=== PATIENT | male | born 1985 | race Caucasian/White ===

== ENCOUNTER → 2024-06-07 | Outpatient (CLI) | payer MEDICAID, SELFPAY ==
--- NOTE | 2024-06-07 14:42 | CT_ITS ---
PROCEDURE: SOFT TISSUE NECK WITH CONTRAST 06/07/2024 REASON FOR EXAM: LOCALIZED SWELLING, MASS AND LUMP, NECK TECHNIQUE: CT of the soft tissues of the neck from the orbits to the upper mediastinum with intravenous contrast. CONTRAST: Isovue 370 VOLUME: 75 mL One or more dose reduction techniques were used (e.g., Automated exposure control, adjustment of the mA and/or kV according to patient size, use of iterative reconstruction technique). RADIATION DOSE SUMMARY: CTDlvol: 17.78 mGy DLP: 575 mGycm COMPARISON: None FINDINGS: Airway: Midline and patent. Salivary glands: Unremarkable. Lymph nodes: Mild reactive enlargement of multiple cervical lymph nodes. Thyroid: Subcentimeter cyst in the right lobe of the thyroid. Vasculature: Unremarkable Orbits: Unremarkable at visualized levels. Paranasal sinuses and mastoids: Grossly clear at visualized levels. Lung apices: Clear. Upper mediastinum: Visualized mediastinum is unremarkable. Bones: Unremarkable. Other: CT/Soft Tissue Neck WITH Contrast IMPRESSION: NORMAL CONTRAST-ENHANCED CT OF THE SOFT TISSUES OF THE NECK. Reading Location: [place] [id number]
== END | disposition home or self-care (01) ==
LOC: CT 14:40
PROVIDERS: Referring Provider Otolaryngology; Visit Provider Otolaryngology
DX: R22.1 Localized swelling, mass and lump, neck (principal)
CPT/HCPCS: 70491; Q9967